=== PATIENT | female | born 1975 | race Caucasian/White ===

== ENCOUNTER → 2017-06-02 | Outpatient (REF) | payer BC ==
[2017-06-02 21:36] LABS: CONTROL LINE MONO INT CTR LINE PRESENT; MONO SCRN NEGATIVE (NEGATIVE)
== END ==
LOC: M LAB REF 18:53
DX: J02.9 Acute pharyngitis, unspecified (principal); R53.83 Other fatigue
CPT/HCPCS: 86308

== ENCOUNTER → 2017-06-02 | Outpatient (REF) | payer BC | LOC: M LAB REF 16:35 | DX: J02.9 Acute pharyngitis, unspecified (principal) | CPT/HCPCS: 87077 ==

== ENCOUNTER → 2018-07-03 | Outpatient (REF) | payer BC ==
[~2018-07-03] MED LIST: ACET50TA PO; ANUS2.5C2 TOP; DIBU1OI TOP; DOCU10ELUD PO; IBUP600T26 PO; MOM30SS PO
[2018-07-07 14:53] LABS: HPV HYBRID CAPTURE II Negative (Negative)
== END ==
LOC: M LAB REF 16:57
PROVIDERS: ATTEND Obstetrics & Gynecology
DX: Z12.4 Encounter for screening for malignant neoplasm of cervix (principal)
CPT/HCPCS: 87624; G0123

== ENCOUNTER → 2018-07-07 | Outpatient (CLI) | payer BC ==
[~2018-07-07] MED LIST changes: -ACET50TA PO; +DIBU0.5O TOP; -DIBU1OI TOP; -DOCU10ELUD PO; +DOCU5LIQ PO; +MAPA500T17 PO
[2018-07-09 00:06] LABS: ENDOMYSIAL ABY IgA Negative (Negative); TISSUE TRANSGLUTAMINASE IgA <2 U/mL (0-3); UNITSIGA FOR GLIADIN IGA 9 units (0-19); UNITSIGG FOR GLIADIN IGG 2 units (0-19)
== END ==
LOC: M SMT 12:00
PROVIDERS: ATTEND Allergy & Immunology Allergy
DX: L30.9 Dermatitis, unspecified (principal); R10.9 Unspecified abdominal pain

== ENCOUNTER → 2018-09-18 | Outpatient (REF) | payer BC | LOC: M LAB REF 11:26 | PROVIDERS: ATTEND Internal Medicine | DX: J02.9 Acute pharyngitis, unspecified (principal) ==

== ENCOUNTER → 2020-08-08 | Outpatient (REF) | payer BC | LOC: M WUC 15:45 | PROVIDERS: ATTEND Physician Assistant | DX: J02.9 Acute pharyngitis, unspecified (principal) ==

== ENCOUNTER → 2020-10-30 | Outpatient (CLI) | payer BC ==
[2020-10-30 13:59] LABS: BASO % 0.8 % (0.0-1.0); EOS # 0.1 10^3/uL (0.0-0.5); EOS % 2.4 % (0.0-3.0); HEMATOCRIT 41.3 % (36.0-47.0); HEMOGLOBIN 13.4 g/dl (12.0-15.5); LYMPH # 1.5 10^3/uL (1.5-5.0); LYMPH % 28.9 % (24.0-44.0); MEAN CORPUSCULAR HEMOGLOBIN 30.4 pg (27.0-33.0); MEAN CORPUSCULAR HGB CONC 32.4 g/dl (32.0-36.5); MEAN CORPUSCULAR VOLUME 93.7 fl (80.0-96.0); MONO # 0.4 10^3/uL (0.0-0.8); MONO % 7.7 % (2.0-8.0); PLATELET COUNT, AUTOMATED 186 10^3/uL (150-450); RED BLOOD COUNT 4.41 10^6/uL (4.00-5.40); WHITE BLOOD COUNT 5.1 10^3/uL (4.0-10.0)
[2020-10-30 14:20] LABS: C REACTIVE PROTEIN QUANTITATIV < 0.30 MG/DL (0.00-0.30); RHEUMATOID FACTOR QUANT < 10.0 IU/ML (<15.0)
[2020-10-30 15:26] LABS: ERYTHROCYTE SEDIMENTATION RATE 7 mm/hr (0-20)
[2020-10-31 15:08] LABS: ANTINUCLEAR ANTIBODIES DIRECT Negative (Negative); Lyme Disease IgG/IgM Antibodie <0.91 ISR (0.00-0.90); Lyme Disease IgM Ab Quantitati <0.80 index (0.00-0.79)
== END ==
LOC: M PLALAB 10:38
PROVIDERS: ATTEND Orthopaedic Surgery
DX: M25.561 Pain in right knee (principal)

== ENCOUNTER → 2021-02-08 | Outpatient (CLI) | payer BC ==
--- NOTE | 2021-02-08 12:01 | REPVR ---
PROCEDURE INFORMATION: Exam: MR Head Without Contrast Exam date and time: 02/08/2021 9:04 AM Age: 45 years old Clinical indication: Pain; Headache; Additional info: Simmons's TECHNIQUE: Imaging protocol: MR of the head without contrast. COMPARISON: No relevant prior studies available. FINDINGS: Brain: No acute infarct identified on the diffusion-weighted imaging. No evidence of brain parenchymal edema or intracranial mass effect. The T2 weighted imaging demonstrates a focus of increased signal intensity in the right external capsule, likely trace chronic small vessel ischemic change. There is a right parietal deep white matter perivascular space. Cerebral ventricles: Normal. No ventriculomegaly. Bones/joints: Unremarkable. Paranasal sinuses: Trace ethmoid mucosal thickening. Mastoid air cells: Normal as visualized. No mastoid effusion. Orbital cavity: Unremarkable. Soft tissues: Unremarkable. IMPRESSION: Essentially unremarkable MRI brain. Electronically signed by: Dorie Apodaca On 02/08/2021 12:00:57 PM
== END ==
LOC: M PLAIMG 08:34
PROVIDERS: ATTEND Registered Nurse
DX: R51.9 Headache, unspecified (principal)